=== PATIENT | male | born 1980 | race Caucasian/White ===

== ENCOUNTER 2025-08-28 20:47 | Emergency (ER) | payer MEDICARE, MEDICAID ==
[~2025-08-28] VITALS: Ht 177.8 cm; Wt 112.9 kg
[2025-08-28 21:03] VITALS: BP 153/94; PULSE 88; RESP 19; O2SAT 99
--- NOTE | 2025-08-28 21:43 | Physician Documentation ---
History of Present Illness ~ General Chief Complaint: Multiple Medical Complaints Stated Complaint: RIGHT LEG PAIN Time Seen by MD: 21:42 History of Present Illness Initial Comments 45-year-old male presenting with multiple complaints The patient tells me that he has swelling in his legs. He had bleeding from a small wound to the anterior left joseph. He states that his abdomen feels distended. He says that he is worried that he is bleeding down on the inside of his left leg. Reports multiple other complaints. He says he was vomiting earlier today. He tells me that he has hemorrhoids and uses preparation H. He says that sometimes he feels short of breath when he walks up stairs. The patient was seen here earlier in the emergency department for vomiting. He had laboratory testing that was unremarkable including a chemistry panel with normal LFTs. Urinalysis without infection. Medication Reconciliation Allergies: Coded Allergies: Penicillins (Verified Allergy, Unknown, 08/28/25) ampicillin (Verified Allergy, Unknown, 08/28/25) Scheduled Pantoprazole Sodium (PROTONIX tablet), 1 TAB PO DAILY Scheduled PRN Ondansetron 8mg ODT (Ondansetron Odt), 1 TAB PO TID PRN for nausea/vomiting Past Medical History Past Medical History: Seizures, Bipolar, Schizophrenia Alcohol Use: None Drug Use: none Review of Systems Constitutional: Denies: fever Respiratory: Reports: SOB with exertion Cardiovascular: Denies: chest pain Gastrointestinal: Reports: rectal pain Integumentary: Reports: wound(s) Allergic/Immunologic: Reports: itching Physical Exam Physical Exam Vital Signs: Temperature: 98.0, Heart Rate: 88, Respiratory Rate: 19, BP: 153/94, Pulse Oximetry: 99, Weight: 112.900 Physical Exam General: This is a middle-aged man, very talkative, friend at bedside HEENT: Atraumatic, oropharynx is moist Heart: Regular rate and rhythm, normal-appearing peripheral perfusion Lungs: Clear breath sounds bilateral, normal work of breathing, normal oxygen saturation on room air Abdomen: Soft, mildly distended abdomen, no tenderness to deep palpation, no rebound or guarding Extremities: Warm and well-perfused. Mild edema to both calves. On the left lower extremity, there are several small scabbed wounds on the anterior joseph, no active bleeding. No large varicose veins. Neuro: Alert and oriented Psychiatric: Appears anxious about his medical conditions, very talkative Progress Results/Orders Results/Orders Orders - JERRI RODRIGUEZ MD Chest,Two Views (08/28/25 22:11) Completed Orders - JERRI RODRIGUEZ MD Electrocardiogram (08/28/25 22:11) Chest,Two Views (08/28/25 22:11) Vital Signs 08/28/25 08/28/25 21:03 23:13 Temp 98.0 98.0 Pulse 88 Resp 19 B/P (MAP) 153/94 Pulse Ox 99 EKG/XRAY/CT/US/VASC/MRI EKG : Additional Comment I personally interpreted the EKG and this shows: Sinus rhythm, rate 95, QTC 473, no STEMI Chest X-Ray : Additional Comments I personally interpreted the x-ray, and it shows: No focal consolidation, no pneumothorax, no pulmonary edema Medical Decision Making Additional information obtaine: old records Findings Reviewed ER visit and laboratory testing from earlier today Differential Diagnosis Edema, electrolyte derangement, liver failure, CHF, anxiety Assessment The patient presents with multiple complaints. It seems like his primary complaint and concern is the swelling in his legs and feeling like his abdomen is distended. On exam he does have some edema. His abdomen is possibly distended but nontender. He has a small wound on his left joseph, but no active bleeding. I reviewed his laboratory testing from earlier today, which shows normal blood counts and liver function. EKG is unremarkable. Chest x-ray without pulmonary edema or signs of congestive heart failure. Overall, no dangerous cause identified for his multiple symptoms. He was counseled on using compression stockings. He will follow up with his primary care doctor for further testing and evaluation including possibly an ultrasound of his abdomen or echocardiogram. Departure Time of Disposition: 23:11 Disposition: HOME / SELF CARE / HOMELESS Impression: Primary Impression: Bilateral lower extremity edema Condition: Stable Discharge Instructions: Peripheral Edema Referrals: NO PRIMARY CARE PROVIDER (PCP) Education Educated: Patient Educated regarding: diagnosis, treatment, need for follow up Signature Scribe Signature: na Attestation: JERRI Galarza MD Aug 28, 2025 21:43
--- NOTE | 2025-08-28 22:29 | ELECTROCARDIOGRAPH REPORT ---
[facility] Test Date: 2025-08-28 Test Time: 22:26:19 Pat Name: TYREE CABA Department: [facility]- Patient ID: [id number] Room: Gender: M Forklift Material Handler: : 1980 Requested By: JERRI RODRIGUEZ Order Number: [id number] Reading MD: Dr. FOX Moore Measurements Intervals [place] Rate: 95 P: 48 PA: 156 QRS: -57 QRSD: 104 T: 41 QT: 376 QTc: 473 Interpretive Statements Sinus rhythm Left anterior fascicular block Abnormal R-wave progression, late transition Left ventricular hypertrophy Electronically Signed On 08-30-2025 12:54:[address] FOX Moore Please click the below link to view image of tracing.
--- NOTE | 2025-08-28 23:05 | RADIOLOGY REPORT ---
CHEST RADIOGRAPH Indication: Shortness of breath with exertion, leg swelling Technique: 2 views Comparison: None FINDINGS: Lines and Tubes: None. Lungs/Pleura: No focal consolidation, pleural effusion or pneumothorax. Basilar linear opacities consistent with scarring/atelectasis. Cardiomediastinum: Unremarkable. Other: No acute osseous abnormality. IMPRESSION: 1. No acute cardiopulmonary abnormality.
[2025-08-28 23:13] VITALS: TEMP 98
== END 2025-08-28 23:16 | disposition home or self-care (01) ==
LOC: ER 20:48
DX: R60.0 Localized edema (principal); F31.9 Bipolar disorder, unspecified; F20.9 Schizophrenia, unspecified; Z88.0 Allergy status to penicillin; Z88.1 Allergy status to other antibiotic agents; Z79.899 Other long term (current) drug therapy
CPT/HCPCS: 71046; 93005; 99283

== ENCOUNTER → 2025-08-28 | Emergency (ER) | payer MEDICARE, MEDICAID ==
[~2025-08-28] VITALS: Ht 177.8 cm; Wt 113.4 kg
[~2025-08-28] MED LIST: ONDA-245 PO; PANT-47 PO
[2025-08-28 11:20] LABS: LEUKOCYTE ESTERASE ,URINE NEGATIVE (Neg); NITRITES, URINE NEGATIVE (Neg); OCCULT BLOOD,URINE NEGATIVE (Neg)
[2025-08-28 11:25] LABS: UA COLLECTION TYPE CLN CATCH MIDSTREAM
[2025-08-28 11:27] LABS: MUCUS STRANDS MODERATE /LPF (Neg); SQUAMOUS EPITHELIAL CELL,UR FEW /LPF (FEW)
[2025-08-28 11:39] LABS: MEAN PLATELET VOLUME 10.3 FL (7.4-10.4); RED CELL DISTRIBUTION WIDTH 14.2 % (11.5-14.5)
[2025-08-28 11:56] LABS: CREATININE 0.93 MG/DL (0.60-1.10); TOTAL CARBON DIOXIDE 29.6 MMOL/L (24-32); eCRCL 104 ML/MIN; eGFR 88 ML/MIN
--- NOTE | 2025-08-28 13:02 | Physician Documentation ---
History of Present Illness ~ General Chief Complaint: Abdominal Pain w/vomiting Stated Complaint: MULTIPLE MED COMPLAINTS Time Seen by MD: 12:36 Source: patient (2) History of Present Illness Initial Comments Patient comes in for evaluation of nausea and vomiting the wound. He reports that he went to work at the [employer] at 7:00 a.m., and was told to go home because he had several episodes of vomiting over a couple of hours. This is not start today; patient is already taking Zofran, and reports that he is out in the like a refill. He called a friend to pick him up at work today, and they went out to lunch. He tells me that his nausea and vomiting now resolved with the secondary complaint is that he feels swollen all over, but this has been going on for a long time. at least two months. He is not sure whether the swelling in his feet is worse than usual, but also reports that he has swelling in his arms, his chest, and feels belly. Patient also reports that he has had heavy breathing with exertion for some time as well. Medication Reconciliation Allergies: Coded Allergies: Penicillins (Verified Allergy, Unknown, 08/28/25) ampicillin (Verified Allergy, Unknown, 08/28/25) Scheduled Pantoprazole Sodium (PROTONIX tablet), 1 TAB PO DAILY Scheduled PRN Ondansetron 8mg ODT (Ondansetron Odt), 1 TAB PO TID PRN for nausea/vomiting Past Medical History Past Medical History: Seizures, Bipolar, Schizophrenia Smoking Status: Never smoker Alcohol Use: None Drug Use: none Review of Systems All Other Systems at this time: Reviewed and Negative Physical Exam Physical Exam Vital Signs: Temperature: 97.7, Source: Oral, Heart Rate: 92, Respiratory Rate: 20, BP: 128/91, Pulse Oximetry: 97, Weight: 113.400 Oxygen Flow Rate: 0 Physical Exam General: Pt is awake, alert, oriented x4 in no acute distress and well appearing. Obese. Head: Normocephalic and atraumatic. Eyes: Conjunctiva normal. ENT: Mucous membranes moist. Neck: Supple. Chest: Clear to auscultation bilaterally, without rales, rhonchi, or wheezes. There is no accessory muscle use or retractions. Cardiac: Regular rate and rhythm without murmurs, gallops or rubs. Palpation of the chest wall is normal. Abd: Soft, nondistended, nontender, with normoactive bowel sounds. No guarding or rebound. Extremities: Within normal limits without cyanosis, clubbing, and there is no pedal edema, no hand edema, no anasarca Skin: [place], warm and dry with no significant rash appreciated. Neuro: Cranial nerves II-XII grossly intact. The gait is normal. Progress Results/Orders Results/Orders Orders - PORTIA OCONNOR MD Electrocardiogram (08/28/25 13:01) Completed Orders - PORTIA OCONNOR MD Cbc/Diff (08/28/25 10:50) Lipase (08/28/25 10:50) CMP (08/28/25 10:50) Ua W/Microscopic, Cult If Ind (08/28/25 11:01) Hs Troponin I W Calculations (08/28/25 13:01) Electrocardiogram (08/28/25 13:01) Vital Signs 08/28/25 08/28/25 10:42 14:42 Temp 97.7 98.2 Pulse 92 72 Resp 20 14 B/P (MAP) 128/91 116/82 Pulse Ox 97 96 O2 Flow Rate 0 Laboratory Tests Test 08/28/25 11:01 08/28/25 11:26 Urine Specimen Description Cln catch midstream Urine Color Colette Urine Clarity Clear Urine pH 7.5 Urine Specific [place] 1.020 Urine Protein Trace Urine Glucose (UA) Negative Urine Ketones Trace H Urine Occult Blood Negative Urine Nitrite Negative Urine Bilirubin Negative Urine Urobilinogen 1.0 Urine Leukocyte Esterase Negative Urine RBC 3-10 Urine WBC 0-4 Urine Squamous Epithelial Cells Few Urine Bacteria Few Urine Mucus Moderate Urine Culture Indicated Not ind Volume Urine Centrifuged 10 ml Urine Comment White Blood Count 10.5 Red Blood Count 5.14 Hemoglobin 15.7 Hematocrit 46.4 Mean Corpuscular Volume 90.1 Mean Corpuscular Hemoglobin 30.6 Mean Corpuscular Hemoglobin Concent 34.0 Red Cell Distribution Width 14.2 Platelet Count 141 Mean Platelet Volume 10.3 Neutrophils (%) (Auto) 66.6 Lymphocytes (%) (Auto) 23.6 Monocytes (%) (Auto) 8.3 Eosinophils (%) (Auto) 0.6 Basophils (%) (Auto) 0.9 Neutrophils # (Auto) 7.0 Lymphocytes # (Auto) 2.5 Monocytes # (Auto) 0.9 Eosinophils # (Auto) 0.1 Basophils # (Auto) 0.1 CBC Comment Sodium Level 144 Potassium Level 3.8 Chloride Level 106 Carbon Dioxide Level 29.6 Anion Gap 8 Blood Urea Nitrogen 11 Creatinine 0.93 Estimated GFR/1.73 m2 88 BUN/Creatinine Ratio 11.8 Glucose Level 106 H Calcium Level 8.6 Total Bilirubin 0.6 Aspartate Amino Transf (AST/SGOT) 25 Alanine Aminotransferase (ALT/SGPT) 39 Alkaline Phosphatase 79 Troponin I High Sensitivity 9 Total Protein 7.3 Albumin 4.0 Globulin 3.3 Albumin/Globulin Ratio 1.2 Lipase 21 Chemistry Comments EKG/XRAY/CT/US/VASC/MRI EKG : EKG Rate: 80 EKG: NSR [place]: LAD Hypertrophy: LVH Medical Decision Making Additional information obtaine: N/A Findings Differential Diagnosis The patient presented with complaints of nausea and vomiting but none here. Patient was tolerating p.o. without difficulty and had no evidence for dehydration or electrolyte abnormality. Laboratory workup was within normal limits, no evidence for cardiac dysfunction, no kidney function problems to suggest any edema, and no evidence of cardiac ischemia. Patient reassured, likely has a gastroesophageal etiology for his nausea and vomiting, and I will refill his Zofran as well as start him on proton pump inhibitor. Patient understands he should follow-up with his regular physician closely for further outpatient evaluation, understands to return to the emergency department immediately if he has any worsening symptoms or concerns. Departure Time of Disposition: 14:21 Disposition: 01 HOME / SELF CARE / HOMELESS Impression: Primary Impression: Vomiting Discharge Instructions: Gastritis, Adult Additional Instructions: Please follow-up with your regular physician. Continue your regular medications and add the medications prescribed today. Return to the emergency department if you have any new symptoms, or any other concerns. Referrals: NO PRIMARY CARE PROVIDER (PCP) Prescriptions Pantoprazole Sodium (PROTONIX tablet) 40 Mg Tablet.dr 1 TAB PO DAILY for 30 Days, #30 TAB 0 Refills Prov: PORTIA OCONNOR MD 08/28/25 Ondansetron 8mg ODT (Ondansetron Odt) 8 Mg Tab.rapdis 1 TAB PO TID PRN for nausea/vomiting, #10 TAB Prov: PORTIA OCONNOR MD 08/28/25 Education Educated: Patient, Other Educated regarding: diagnosis, treatment Signature Scribe Signature: Attestation: PORTIA OCONNOR MD Aug 28, 2025 13:02
--- NOTE | 2025-08-28 13:07 | ELECTROCARDIOGRAPH REPORT ---
[facility] Test Date: 2025-08-28 Test Time: 13:04:11 Pat Name: TYREE CABA [facility]- [id number] Room: Gender: M Nail Technician: : 1980 Requested By: PORTIA OCONNOR Order Number: [id number] Reading MD: Dr. FOX Moore Measurements Intervals [place] Rate: 80 P: 48 ID: [id number] QRS: -58 QRSD: 117 T: 60 QT: 420 QTc: 485 Interpretive Statements Sinus rhythm Left anterior fascicular block Left ventricular hypertrophy ST elevation, consider inferior injury Electronically Signed On 08-29-2025 15:18:[address] FOX Moore Please click the below link to view image of tracing.
[2025-08-28 14:42] VITALS: BP 116/82; PULSE 72; RESP 14; TEMP 98.2; O2SAT 96
== END | disposition home or self-care (01) ==
LOC: ER 10:41
DX: R11.10 Vomiting, unspecified (principal); F31.9 Bipolar disorder, unspecified; F20.9 Schizophrenia, unspecified; Z88.0 Allergy status to penicillin; Z88.1 Allergy status to other antibiotic agents; Z79.899 Other long term (current) drug therapy
CPT/HCPCS: 36415; 80053; 81001; 83690; 84484; 85025; 93005; 99284